=== PATIENT | male | born 1965 | race Caucasian/White ===

== ENCOUNTER 2017-10-13 10:11 | Day surgery (SDC) | payer BC ==
[~2017-10-13] VITALS: Ht 182.9 cm; Wt 83.9 kg
[~2017-10-13 10:11] MED LIST: CEFAZOLIN SOD 1 GM/ ISO 50 ML PREMIX IV ONE
[2017-10-13] MEDS ORDERED: POLYMYXIN 500,000/BACIT.10,000 UNITS in NS IRR 1 L IR ONE (14:30)
[2017-10-13] MEDS ORDERED: LR 1,000 ML IV SCH (14:59)
[2017-10-13] MEDS ORDERED: MORPHINE 4 MG/ML INJ. SYRINGE IVP PRN ×3 (15:00)
[2017-10-13] MEDS ORDERED: METOCLOPRAMIDE HCL 10 MG/2 ML VIAL IVP PRN (15:00)
[2017-10-13] MEDS ORDERED: D5/0.45 NS 1,000 ML IV SCH (15:21)
[2017-10-13] MEDS ORDERED: ONDANSETRON HCL 4 MG/2 ML VIAL IVP ONE (15:30)
[2017-10-13] MEDS ORDERED: HYDROcodone/ACETAMIN 5-325 MG TAB (NORCO/ VICODIN) PO PRN ×2 (15:30)
[2017-10-13] MEDS ORDERED: MIDAZOLAM HCL 5 MG/ML VIAL (VERSED) IV ONE (15:30)
[2017-10-13] MEDS ORDERED: BUPIVACAINE /PF 0.25% 30 ML VIAL INJ ONE (15:30)
[2017-10-13] MEDS ORDERED: SEVOFLURANE 15 MIN GAS INH ONE (15:30)
[2017-10-13] MEDS ORDERED: LR 1,000 ML IV.SOLN IV ONE (15:30)
[2017-10-13] MEDS ORDERED: PROPOFOL 200MG/ 20ML VIAL (DIPRIVAN) IV ONE (15:30)
[2017-10-13] MEDS ORDERED: HYDROmorphone 1 MG INJ. 1 MG/ML AMPUL IVP PRN (15:30)
[2017-10-13] MEDS ORDERED: fentaNYL CITRATE 250 MCG/5 ML AMP IV ONE (15:30)
[2017-10-13] MEDS ORDERED: ROCURONIUM BROMIDE 10 MG/ML (ZEMURON) IV ONE (15:30)
[2017-10-13] MEDS ORDERED: HYDROcodone/ACETAMIN 5-325 MG TAB (NORCO/ VICODIN) ONE (16:41)
[2017-10-13 17:09] VITALS: BP_SYST 122
== END 2017-10-13 18:35 | disposition home or self-care (01) ==
LOC: SDS 10:11 → SMU 10:12 → SDS 18:35
PROVIDERS: ATTEND Colon & Rectal Surgery
DX: K40.30 Unilateral inguinal hernia, with obstruction, without gangrene, not specified as recurrent (principal)
CPT/HCPCS: 49507; C1781; J0690; J2250; J2405; J2704; J3010; J3490; J7120